=== PATIENT | female | born 1950 ===

== ENCOUNTER 2016-10-17 10:33 | Outpatient (CLI) | payer OTHER | END 2016-10-17 10:34 | LOC: OUT 10:33 | PROVIDERS: ATTEND Colon & Rectal Surgery | DX: K59.09 Other constipation (principal) | CPT/HCPCS: 99213 ==

== ENCOUNTER 2016-11-07 09:41 | Outpatient (CLI) | payer OTHER | END 2016-11-07 09:42 | LOC: OUT 09:41 | PROVIDERS: ATTEND Colon & Rectal Surgery | DX: K59.00 Constipation, unspecified (principal) | CPT/HCPCS: 99212 ==

== ENCOUNTER 2016-11-13 10:22 | Observation (INO) | payer OTHER ==
[2016-11-13] MEDS ORDERED: PEG PO ONE ×2 (11:04→14:00)
[2016-11-13 12:18] LABS: BASOPHILS % 0.7 (0.0-1.5); MEAN CORPUSCULAR HEMOGLOBIN 34.7 pg (28.0-34.0); MEAN CORPUSCULAR VOLUME 98.8 fl (80.0-100.0); MONOCYTES % 4.3 % (0.0-11.0)
[2016-11-13 12:38] LABS: eGFR (African) > 60; eGFR (Non-African) > 60
[2016-11-13 15:00] VITALS: BMI 18.1
--- NOTE | 2016-11-13 15:47 | Diagnostic Imaging Report ---
[facility]TH WING/MED SURG [facility] [address] [facility].[address] [address] Report Submission Date: Nov 13, 2016 3:46:33 PM CDT Patient Study Name: GALINA SERRANO Date: Nov 13, 2016 3:18:19 PM CDT Modality Type: CR Gender: F Description: ABDOMEN : 54 Institution: [facility] Physician: [facility] W[facility]/MED SURG Examination: Obstruction series History: Abdominal discomfort Findings: 2 views obtained of the abdomen. No abnormal dilation of the large or small bowel. Air and stool throughout the large bowel. No suspicious calcification projecting over the renal fossa. Pelvic phleboliths. Osseous structures are appropriate for age. Impression: No ileus or obstruction by plain film sensitivity. Normal amount of stool within the visualized large bowel. Electronically signed on Nov 13, 2016 3:46:33 PM CDT by: Omari LOPEZ
--- NOTE | 2016-11-14 08:26 | History and Physical Report ---
History of Present Illnes - History of Present Illness Reason for Visit: constipation History of Present Illness: Who states she had not been having normal bowel movements for greater than a month. Patient data the last bowel movement was greater than one week ago. 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 Has had colonoscopy and reported to her to be normal, but it was a poor prep. No specific etiology has been found. Patient states she is been having nausea vomiting related to her constipation. Patient did have a KUB down on the day of admission did show a lot of retained stool: but not excessive. Patient was admitted to observation for further evaluation and treatment. - Past Medical History ROLL CAPPER: Migraine Musculoskeletal: Other (osteoporosis) Rheumatologic: Fibromyalgia - Past Surgical History Past Surgical History: Hysterectomy, Other (AP bladder repair, laparotomy) - Past Family History Mother Family History: (86yo bowel perforation) Father Family History: (86yo COPD) Sister 1 Family History: (MVA) - Past Social History Smoke: Quit Alcohol: None Drugs: None Lives: Alone - Health Maintenance Health Maintenance: denies: Cholesterol, Influenza Vaccine Influenza Vaccine: No Pneumonia Vaccine: No Resuscitation Status: Resusciation Status Resuscitation Status Full Code - Unable to Obtain History Unable to Obtain: No Review of Systems - Review of Systems Constitutional: negative: Fever, Chills, Weakness Eyes: negative: pain ENT: negative: Ear Pain Respiratory: negative: Cough, Dry, Shortness of Breath Cardiovascular: negative: Chest Pain Gastrointestinal: Nausea, Abdominal Pain, Constipation. negative: Vomiting, Diarrhea, Melena, Hematochezia Genitourinary: negative: Dysuria, Frequency Musculoskeletal: negative: Neck Pain Skin: negative: Rash Neurological: negative: Weakness, Numbness - Medications/Allergies Allergies/Adverse Reactions: Allergies Allergy/AdvReac Type Severity Reaction Status Date / Time nalbuphine HCl [From Nubain] Allergy Nausea/Vomi Unverified 10/10/14 13:39 ting sumatriptan [From Imitrex] AdvReac Nausea/Vomi Verified 11/14/16 15:09 ting sumatriptan succinate AdvReac Nausea/Vomi Verified 11/14/16 15:09 [From Imitrex] ting Exam - Exam Vital Signs: Vital Signs (72 hours) 11/13/16 11/13/16 11/13/16 11:09 14:00 18:00 Temperature 98.4 F 98.2 F 97.7 F Pulse Rate [ Pulse ox] Respiratory 18 62 H 18 Rate Blood Pressure 124/76 126/72 [Left Arm] Blood Pressure 124/76 113/57 [Right Arm] O2 Sat by Pulse 96 96 93 Oximetry 11/13/16 11/13/16 11/14/16 19:00 21:08 02:00 Temperature 97.2 F L 98.1 F Pulse Rate [ 55 L 55 L 61 Pulse ox] Respiratory 16 16 16 Rate Blood Pressure 130/66 119/56 [Left Arm] Blood Pressure [Right Arm] O2 Sat by Pulse 97 94 Oximetry 11/14/16 11/14/16 06:00 08:07 Temperature 98.5 F 97.5 F L Pulse Rate [ 56 L 97 H Pulse ox] Respiratory 16 20 Rate Blood Pressure 108/53 107/43 [Left Arm] Blood Pressure [Right Arm] O2 Sat by Pulse 95 99 Oximetry General: Alert, Oriented to Person, Oriented to Place, Oriented to Time, Cooperative HEENT: Atraumatic, PERRLA, EOMI, Mouth Mucous membr. moist/[place], Nose Mucous membr. moist/[place], Dentition Normal, Hearing Grossly Normal. No: Pharyngeal Erythema Neck: Normal Range of Motion Carotids: WNL Thyroid: WNL Lungs: Clear to auscultation, Normal air movement, Speaks full Sentences Cardiovascular: Regular rate, Normal S1, Normal S2, No murmurs Abdomen: Normal bowel sounds, Soft, No hepatospenomegaly, No masses, Other ( diffuse tenderness in all 4 quadrants) Integumentary: Normal, [place], Warm, Dry Extremities: No clubbing, No cyanosis, No edema, Normal pulses, No tenderness/ swelling Neurological: Normal gait, Normal speech, Strength Equal Bilat, Normal tone, Sensation intact, Cranial nerves 3-12 NL, Reflexes 2+ Psych/Mental Status: Mental status NL, Mood NL, Appropriate Affect, Intact Judgment - Laboratory Results Laboratory Results: Laboratory Results 11/13/16 11/13/16 12:10 12:10 WBC 10.00 RBC 4.12 Hgb 14.3 Hct 40.7 MCV 98.8 MCH 34.7 H MCHC 35.2 RDW 12.2 Plt Count 223 Neut % (Auto) 70.2 Lymph % (Auto) 22.9 [place] % (Auto) 4.3 Eos % (Auto) 1.0 Baso % (Auto) 0.7 Neut # (Auto) 7.0 Lymph # (Auto) 2.3 [place] # (Auto) 0.4 Eos # (Auto) 0.1 Baso # (Auto) 0.1 Reactive Lymphs % 0.9 Reactive Lymphs # 0.1 Sodium 139 Potassium 4.0 Chloride 107 Carbon Dioxide 29 BUN 14 Creatinine 0.7 Est GFR ( Amer) > 60 Est GFR (Non-Af Amer) > 60 Glucose 90 Calcium 9.6 Total Bilirubin 0.7 AST 23 ALT 15 Alkaline Phosphatase 69 Total Protein 6.9 Albumin 4.7 Assessment/Plan - Assessment/Plan (1) Constipation Status: Acute Assessment: will start golytly and recheck. (2) Fibromyalgia Status: Acute Assessment: continue home meds VTE Assessment - RISK FACTOR SCORE VTE RISK FACTOR SCORES: AGE OVER 60 YEARS - RISK VTE LOW RISK: SCORE OF 1 OR LESS (RISK PROXIMAL DVT 0.4%) NO PROPHYLAXIS NEEDED
--- NOTE | 2016-11-14 08:28 | Discharge Summary ---
Discharge Summary - Discharge Sumary History of Present Illness: Who states she had not been having normal bowel movements for greater than a month. Patient data the last bowel movement was greater than one week ago. 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 Patient states she is been having nausea vomiting related to her constipation. Patient did have a KUB down on the day of admission did show a lot of retained stool: but not excessive. Patient was admitted to observation for further evaluation and treatment. Condition at Discharge: Stable Consultations this Visit: None Procedures this Visit: None Allergies/Adverse Reactions: Allergies Allergy/AdvReac Type Severity Reaction Status Date / Time nalbuphine HCl [From Nubain] Allergy Nausea/Vomi Unverified 10/10/14 13:39 ting sumatriptan [From Imitrex] AdvReac Nausea/Vomi Verified 11/14/16 15:09 ting sumatriptan succinate AdvReac Nausea/Vomi Verified 11/14/16 15:09 [From Imitrex] ting Discharge Summary: Patient had a KUB done which did sow some retained stool but not an excessive amount. Patient was started on Golytly and has several large liquid stools. Patient states that she was feeling better and felt that she could go home. Patient was discharged in stable condition.
[2016-11-14 14:10] VITALS: BP 113/57
--- NOTE | 2016-11-14 15:17 | Diagnostic Imaging Report ---
SOUTH WING/MED SURG [facility] [address] [address] [facility] [address] Report Submission Date: Nov 14, 2016 3:07:33 PM CDT Patient Study Name: GALINA SERRANO Date: Nov 14, 2016 11:12:40 AM CDT Modality Type: CR Gender: F Description: ABDOMEN : 54 Institution: [facility] Physician: [facility]MED SURG Examination: Obstruction series History: Abdominal discomfort Findings: 2 views obtained of the abdomen. No abnormal dilation of the large or small bowel. Air and stool throughout the large bowel. No suspicious calcification projecting over the renal fossa. Pelvic phleboliths. Osseous structures are appropriate for age. Impression: No obstruction. Normal amount of stool within the large bowel. Electronically signed on Nov 14, 2016 3:07:33 PM CDT by: Omari LOPEZ
== END 2016-11-14 12:35 | disposition home or self-care (01) ==
LOC: SOUTH 10:22
PROVIDERS: ADMIT Family Medicine; ATTEND Family Medicine
DX: K59.00 Constipation, unspecified (principal)
CPT/HCPCS: 36415; 74000; 80053; 85025; G0378; G0379; 99283; 99284; S1016

== ENCOUNTER 2017-02-18 10:42 | Emergency (ER) | payer OTHER ==
--- NOTE | 2017-02-18 11:23 | ED Physician Documentation ---
Low Back Pain - HISTORIAN Historian: patient - HPI Stated Complaint: R back pain Chief Complaint: Low Back Pain/ Injury Additional Information: Patient developed some sudden onset of pain in the right flank area this AM. No precipitating or modifying factors noted. Onset: hours (several hours ago. ) Duration: continues in ED Recent Injury: No Severity: severe Associated Symptoms: denies: fever, chills Worsened By:: nothing Relieved By: nothing Further Comments: yes (Sudden onset of right flnk pain. No precipitating or modifying factor noted. Has had kidney stones in the past but this feel different. Has been nauseated. No vomiting. Last BM yesterday and was normal for her, no blood noted. No hematuria noted.) - ROS CONST: no problems CVS/RESP: denies: chest pain, shortness of breath MS/SKIN/LYMPH: denies: calf pain, joint pain GI/: abdominal pain. denies: black stools - PAST HX Past History: other (constipation, kidney stones, chronic back pain) Other History: other (fibromyalgia, ocular migraines) Surgeries/Procedures: hysterectomy, other (laperotomy, AP bladder repair) Allergies/Adverse Reactions: Allergies Allergy/AdvReac Type Severity Reaction Status Date / Time nalbuphine HCl [From Nubain] Allergy Nausea/Vomi Unverified 02/18/17 12:04 ting sumatriptan [From Imitrex] AdvReac Nausea/Vomi Verified 02/18/17 12:04 ting sumatriptan succinate AdvReac Nausea/Vomi Verified 02/18/17 12:04 [From Imitrex] ting Home Medications: Ambulatory Orders Medication Instructions Recorded NK [NK] 02/18/17 - SOCIAL HX Smoking History: quit greater than 1 year Alcohol Use: none Drug Use: none - FAMILY HX Family History: no significant history - VITAL SIGNS Vital Signs: Vital Signs Temp Pulse Resp BP Pulse Ox 97.6 F 81 19 116/72 96 02/18/17 10:50 02/18/17 13:49 02/18/17 13:49 02/18/17 13:49 02/18/17 13:49 - REVIEWED ASSESSMENTS Nursing Assessment Reviewed: Yes Vitals Reviewed: Yes ED Results Lab/Radiology - Lab Results Lab Results: Lab Results 02/18/17 02/18/17 12:00 12:00 WBC 8.80 K/ul K/ul (4.00-12.00) RBC 4.21 M/ul M/ul (3.90-5.20) Hgb 14.1 g/dL g/dL (12.0-16.0) Hct 42.7 % % (34.5-46.5) MCV 101.4 fl H fl (80.0-100.0) MCH 33.5 pg pg (28.0-34.0) MCHC 33.1 g/dL g/dL (30.0-36.0) RDW 12.5 % % (11.3-14.3) Plt Count 246 K/mm3 K/mm3 (130-400) Neut % (Auto) 70.9 % % (39.0-79.0) Lymph % (Auto) 20.9 % % (16.0-50.0) [place] % (Auto) 5.2 % % (0.0-11.0) Eos % (Auto) 1.2 % % (0.0-6.8) Baso % (Auto) 0.8 (0.0-1.5) Neut # (Auto) 6.2 # k/uL # k/uL (1.4-7.7) Lymph # (Auto) 1.8 # k/uL # k/uL (0.6-4.0) [place] # (Auto) 0.4 # k/uL # k/uL (0.0-0.9) Eos # (Auto) 0.1 # k/uL # k/uL (0.0-0.6) Baso # (Auto) 0.1 # k/uL # k/uL (0.0-0.5) Reactive Lymphs % 1.0 % % (0.0-5.0) Reactive Lymphs # 0.1 # k/uL # k/uL (0.0-0.8) Sodium 139 mmol/L mmol/L (136-145) Potassium 4.5 mmol/L mmol/L (3.5-5.1) Chloride 104 mmol/L mmol/L (98-107) Carbon Dioxide 26 mmol/L mmol/L (22-30) BUN 11 mg/dL mg/dL (7-17) Creatinine 0.70 mg/dL mg/dL (0.52-1.04) Estimated Creat Clear 72 Est GFR ( Amer) > 60 (60 - ) Est GFR (Non-Af Amer) > 60 (60 - ) Glucose 75 mg/dL mg/dL (74-106) Calcium 9.6 mg/dL mg/dL (8.4-10.2) Total Bilirubin 0.5 mg/dL mg/dL (0.2-1.3) AST 22 U/L U/L (15-46) ALT 34 U/L U/L (13-69) Alkaline Phosphatase 72 U/L U/L (38-126) Total Protein 7.0 g/dL g/dL (6.3-8.2) Albumin 4.0 g/dL g/dL (3.5-5.0) Lipase 107 U/L U/L (23-300) - Radiology Radiology Impressions: Examination: Obstruction series History: Abdominal discomfort Comparison exam: 14 November 2016 Findings: 2 views obtained of the abdomen. No abnormal dilation of the large or small bowel. Significant stool throughout the large bowel. No suspicious calcification projecting over the renal fossa or the lower pelvic region. Osseous structures demonstrate degenerative changes. Impression: Significant large bowel stool - constipation. No obstruction. No suspicious calcifications by plain film sensitivity. Examination: CT Abdomen/pelvis History: Right flank discomfort. Comparison exams: None available Technique: CT Abdomen/pelvis without contrast protocol. Findings: Liver, spleen, adrenal glands, kidneys, pancreas and gallbladder are without irregularity. No gallstone. No suspicious renal calcifications. Ureters are nondilated in their course through the abdomen and pelvis. No central calcifications identified. Bladder margin without gross abnormality. Numerous pelvic phleboliths. Abdominal aorta with mild peripheral atherosclerotic disease. No aneurysmal dilation. Bowel without contrast limiting evaluation. No evidence for acute mesenteric inflammation or free air. Stool within the large bowel limiting sensitivity. Appendix not visualized. Few sigmoid diverticula. No adjacent inflammation. Osseous structures demonstrates mild degenerative changes. Lung bases without infiltrate. No effusion. Impression: No evidence for acute abdominal inflammatory process given exam technique. No suspicious renal calcifications or abnormal ureteric dilation. No gallstone. Significant stool throughout the large bowel - constipation. Sigmoid diverticulosis. No evidence for acute diverticulitis. - Orders Orders: ED Orders Category Date Time Status CT ABDOMEN PELVIS S [CT ABD & PELVIS W/O CON] Stat Exams 02/18/17 Completed KUB [ABDOMEN 1 VIEW] [RAD] Stat Exams 02/18/17 Completed CBC/PLATELET/DIFF Routine Lab 02/18/17 12:00 Completed CMP Routine Lab 02/18/17 12:00 Completed LIPASE Routine Lab 02/18/17 12:00 Completed URINALYSIS Routine Lab 02/18/17 10:45 Ordered Ketorolac Tromethamine [Toradol] Med 02/18/17 11:59 Discontinued 30 mg IVP NOW ONE Ketorolac Tromethamine [Toradol] Med 02/18/17 12:00 Discontinued 60 mg IM NOW ONE Low Back Pain/Injury - Physical Exam General Appearance: alert, moderate distress EENT: ENT inspection normal, pharynx normal, no signs of dehydration Neck: non-tender Resp/CVS: chest non-tender, breath sounds nml, heart sounds nml, no resp. distress, lungs clear, reg. rate & rhythm Abdomen: no organomegaly, other (general diffuse tednerness noted, no guarding or rebound tenderness). No: hepatomegaly Back: CVA tenderness (mild bilateral) Neuro/Psych: oriented x3, mood/affect nml Skin: warm/dry, normal color Discharge Clincal Impression: Constipation Referrals: Javy Smith MD [Primary Care Provider] - 2 Days Additional Instructions: Drink a lot of fluids. Take a stool softener. Try taking 4 glasses of golytely a day for the next several days. If you continue to have problems to call your mail distribution scheme examiner for further direction. Condition: Stable Disposition: 01 HOME, SELF-CARE Decision to Admit: NO Date of Decison to Admit: 02/18/17 Decision Time: 13:41
[2017-02-18] MEDS ORDERED: KETOROLAC TROMETHAMINE 30 MG/1ML VIAL IVP ONE (11:59)
[2017-02-18 12:03] LABS: BASOPHILS % 0.8 (0.0-1.5); EOSINOPHILS % 1.2 % (0.0-6.8); MEAN CORPUSCULAR HEMOGLOBIN 33.5 pg (28.0-34.0); MEAN CORPUSCULAR VOLUME 101.4 fl (80.0-100.0); MONOCYTES % 5.2 % (0.0-11.0); NEUTROPHILS # 6.2 # k/uL (1.4-7.7)
[2017-02-18] MEDS: KETOROLAC TROMETHAMINE 60 MG/2 ML VIAL IM ONE (12:04)
[2017-02-18 12:26] LABS: eGFR (African) > 60; eGFR (Non-African) > 60
--- NOTE | 2017-02-18 12:58 | Diagnostic Imaging Report ---
TRACEY SALCEDO [facility] [address] [facility] [address] [address] Report Submission Date: Feb 18, 2017 11:57:09 AM ERP SPECIALIST Patient Study Name: GALINA SERRANO Date: Feb 18, 2017 11:42:23 AM ERP SPECIALIST Modality Type: CR Gender: F Description: ABDOMEN : 54 Institution: [facility] Physician: TRACEY SALCEDO Examination: Obstruction series History: Abdominal discomfort Comparison exam: 14 November 2016 Findings: 2 views obtained of the abdomen. No abnormal dilation of the large or small bowel. Significant stool throughout the large bowel. No suspicious calcification projecting over the renal fossa or the lower pelvic region. Osseous structures demonstrate degenerative changes. Impression: Significant large bowel stool - constipation. No obstruction. No suspicious calcifications by plain film sensitivity. Electronically signed on Feb 18, 2017 11:57:09 AM ERP SPECIALIST by: Omari LOPEZ
[2017-02-18 14:00] VITALS: BP 116/72
--- NOTE | 2017-02-18 15:07 | Diagnostic Imaging Report ---
TRACEY SALCEDO [facility] [address] [facility] [address] [place], [place]. [address] Report Submission Date: Feb 18, 2017 1:36:12 PM PSYCHIATRIC TECHNICIAN ASSISTANT Patient Study Name: GALINA SERRANO Date: Feb 18, 2017 1:12:16 PM PSYCHIATRIC TECHNICIAN ASSISTANT Modality Type: CT\SR Gender: F Description: CT ABD & PELVIS W/O CO : 54 Institution: [facility] Physician: TRACEY SALCEDO Examination: CT Abdomen/pelvis History: Right flank discomfort. Comparison exams: None available Technique: CT Abdomen/pelvis without contrast protocol. Findings: Liver, spleen, adrenal glands, kidneys, pancreas and gallbladder are without irregularity. No gallstone. No suspicious renal calcifications. Ureters are nondilated in their course through the abdomen and pelvis. No central calcifications identified. Bladder margin without gross abnormality. Numerous pelvic phleboliths. Abdominal aorta with mild peripheral atherosclerotic disease. No aneurysmal dilation. Bowel without contrast limiting evaluation. No evidence for acute mesenteric inflammation or free air. Stool within the large bowel limiting sensitivity. Appendix not visualized. Few sigmoid diverticula. No adjacent inflammation. Osseous structures demonstrates mild degenerative changes. Lung bases without infiltrate. No effusion. Impression: No evidence for acute abdominal inflammatory process given exam technique. No suspicious renal calcifications or abnormal ureteric dilation. No gallstone. Significant stool throughout the large bowel - constipation. Sigmoid diverticulosis. No evidence for acute diverticulitis. Electronically signed on Feb 18, 2017 1:36:12 PM PSYCHIATRIC TECHNICIAN ASSISTANT by: Omari LOPEZ
== END 2017-02-18 13:49 | disposition home or self-care (01) ==
LOC: ED 10:42
DX: K59.00 Constipation, unspecified (principal)
CPT/HCPCS: 74000; 74176; 80053; 83690; 85025; J1885; 96372; 99283

== ENCOUNTER 2017-07-21 11:50 | Emergency (ER) | payer OTHER ==
--- NOTE | 2017-07-21 11:52 | ED Physician Documentation ---
Chest Pain - HISTORIAN Historian: patient - HPI Stated Complaint: chest tigthness Chief Complaint: Chest Pain Onset: days ago (4) Timing: better Duration: waxing, waning Last known Well Date: 07/17/17 Last Known Well Time: 09:00 Last known Well Code/Unknown Code: Unknown Context: other (she does not note a correlation with any activity ) Severity: moderate Quality: pressure, tightness. denies: aching, stabbing Chest Pain Radiation: no radiation Chest Pain Signs/Symptoms: denies: nausea, vomiting Worsened By: nothing Relieved By: nothing (she has not really tried anything ) - ROS CONST: none MS/LYMPH: none GI/: none EYES/ENT: none SKIN/ENDO: none NEURO/PSYCH: none - PAST HX ND risk factors: no pertinent history DVT/PE Risk Factors: none TAD/AAA risk factors: none Neuro deficit: none GI disease: none Lung disease: none, other (history of smoking ) Surgeries/Procedures: none Immunizations: UTD Allergies/Adverse Reactions: Allergies Allergy/AdvReac Type Severity Reaction Status Date / Time acetaminophen [From Percocet] Allergy Verified 07/21/17 12:09 codeine Allergy Verified 07/21/17 12:09 nalbuphine HCl [From Nubain] Allergy Nausea/Vomi Verified 07/21/17 12:09 ting oxycodone HCl [From Percocet] Allergy Verified 07/21/17 12:09 sumatriptan [From Imitrex] AdvReac Nausea/Vomi Verified 07/21/17 12:09 ting sumatriptan succinate AdvReac Nausea/Vomi Verified 07/21/17 12:09 [From Imitrex] ting Home Medications: Ambulatory Orders Medication Instructions Recorded NK [NK] 02/18/17 - SOCIAL HX Smoking History: quit less than 1 year Alcohol Use: none Drug Use: none - FAMILY HX Family HX: none - VITAL SIGNS Vital Signs: Vital Signs Temp Pulse Resp BP Pulse Ox 116/72 02/18/17 13:49 - REVIEWED ASSESSMENTS Nursing Assessment Reviewed: Yes Vitals Reviewed: Yes ED Results Lab/Radiology - Radiology Radiology Impressions: Examination: PA and lateral chest. History: Evaluate lung vargas. CHEST TIGHTNESS X 4 DAYS (Hx) Comparison exam: None provided. Findings: PA lateral chest demonstrate a normal cardiac and mediastinal silhouette. Vascular calcifications involving the aortic arch. Chronic interstitial changes. No focal infiltrate. No blunting of the costophrenic margins. Bilateral lung granulomas. Osseous structures are appropriate for age. Impression: Chronic parenchymal changes. No acute pulmonary process. Electronically signed on Jul 21, 2017 1:02:18 PM CDT by: Omari Cordero 1315: results discussed she states a few years back she was told she had COPD DG Chest Pain Physical Exam - EXAM General Appearance: no acute distress, alert EENT: eye inspection normal, ENT inspection normal Neck: nml inspection Respiratory: no resp. distress, chest non-tender, wheezes CVS: reg. rate & rhythm, no murmur Abdomen: soft, normal bowel sounds Skin: warm/dry, normal color Extremities: non-tender Neuro: oriented X3, CN's nml as tested, motor nml, sensation nml, mood/affect nml, cognition normal Discharge Clincal Impression: Chest pain Qualifiers: Chest pain type: unspecified Qualified Code(s): R07.9 - Chest pain, unspecified Referrals: Elroy Elizondo PA [Primary Care Provider] - 2 Days Additional Instructions: 1. Medrol dose pack as directed 2. Tylenol or Ibuprofen 3. Follow up with PCP for palpitations 4. Pro Air inhaler 2 puffs every 4-6 hours as needed for cough 5. Increase fluids 6. Return to ER for concerning or increasing symptoms Condition: Stable Disposition: 01 HOME, SELF-CARE Decision to Admit: NO Date of Decison to Admit: 07/21/17 Decision Time: 13:13
[2017-07-21] MEDS ORDERED: ASPIRIN 81 MG CHEW TAB PO ONE (11:58)
[2017-07-21 12:10] LABS: BASOPHILS % 0.7 (0.0-1.5); EOSINOPHILS % 1.5 % (0.0-6.8); MEAN CORPUSCULAR HEMOGLOBIN 34.2 pg (28.0-34.0); MEAN CORPUSCULAR VOLUME 100.3 fl (80.0-100.0); MONOCYTES % 3.8 % (0.0-11.0); NEUTROPHILS # 5.7 # k/uL (1.4-7.7)
[2017-07-21 12:25] LABS: eGFR (Non-African) > 60
--- NOTE | 2017-07-21 13:23 | Diagnostic Imaging Report ---
QAMAR TRAORE [facility] [address] [facility] [address] [address] [place], [place]. [address] Report Submission Date: Jul 21, 2017 1:02:18 PM CDT Patient Study Name: GALINA SERRANO Date: Jul 21, 2017 12:32:23 PM CDT Modality Type: DX Gender: F Description: CHEST : 54 Institution: [facility] Physician: QAMAR TRAORE Examination: PA and lateral chest. History: Evaluate lung vargas. CHEST TIGHTNESS X 4 DAYS (Hx) Comparison exam: None provided. Findings: PA lateral chest demonstrate a normal cardiac and mediastinal silhouette. Vascular calcifications involving the aortic arch. Chronic interstitial changes. No focal infiltrate. No blunting of the costophrenic margins. Bilateral lung granulomas. Osseous structures are appropriate for age. Impression: Chronic parenchymal changes. No acute pulmonary process. Electronically signed on Jul 21, 2017 1:02:18 PM CDT by: Omari LOPEZ
[2017-07-21 13:43] VITALS: BP 108/59
== END 2017-07-21 13:30 | disposition home or self-care (01) ==
LOC: ED 11:50
DX: R07.9 Chest pain, unspecified (principal)
CPT/HCPCS: 71046; 80053; 82550; 82553; 84484; 85025; 99283; S1016

== ENCOUNTER 2017-08-11 12:59 | Outpatient (CLI) | payer OTHER | END 2017-08-11 13:00 | LOC: RT 12:59 | PROVIDERS: ATTEND Physician Assistant | DX: R06.02 Shortness of breath (principal) | CPT/HCPCS: 94010 ==